=== PATIENT | female | born 1995 | race African-American/Black ===

== ENCOUNTER → 2016-12-11 | Outpatient (CLI) | payer BC ==
[~2016-12-11] MED LIST: BIOT1TAB7 PO; GING550C PO; METH1CAP PO; NORE1TAB3 PO; TURM1CAP4 PO; VNTHFA/IN INH
[2016-12-11 13:15] LABS: MEAN CELL VOLUME 93.4 fL (80-100); MEAN CORPUSCULAR HEMOGLOBIN 31.2 pg (25-34); MEAN CORPUSCULAR HGB CONC 33.4 g/dl (32-36); MEAN PLATELET VOLUME 10.1 fL (7.4-10.4); PLATELET COUNT 401 K/uL (130-400); RED BLOOD COUNT 4.39 M/uL (4.2-5.4); WHITE BLOOD COUNT 4.02 K/uL (4.8-10.8)
[2016-12-11 13:28] LABS: PARTIAL THROMBOPLASTIN RATIO 1.1; PROTHROMBIN TIME (PATIENT) 11.1 SECONDS (9.0-12.0)
[2016-12-11 13:46] LABS: BASO ABS # 0.04 K/uL (0-0.2); COMPLETE YES; IG% 0.2 %; LYMPH % 50.2 %; LYMPH ABS # 2.02 K/uL (1.2-3.4); MONO % 8.7 %; NEUT % 36.9 %
[2016-12-11 14:09] LABS: BLOOD UREA NITROGEN 11 mg/dl (7-18); CALCIUM 9.2 mg/dl (8.5-10.1); CARBON DIOXIDE 27 mmol/L (21-32); CHLORIDE 103 mmol/L (98-107); CREATININE 0.81 mg/dl (0.60-1.20); GLUCOSE 78 mg/dl (70-99); POTASSIUM 3.8 mmol/L (3.5-5.1); SODIUM 137 mmol/L (136-145)
== END | disposition home or self-care (01) ==
LOC: C.LAB 12:04
PROVIDERS: ATTEND Plastic Surgery
DX: L73.2 Hidradenitis suppurativa (principal)

== ENCOUNTER → 2016-12-18 | Day surgery (SDC) | payer BC ==
[2016-12-12 14:33] VITALS: Ht 157.5 cm; Wt 54.5 kg
[~2016-12-18] VITALS: Ht 157.5 cm; Wt 54.5 kg
[~2016-12-18] MED LIST changes: +ACETAMINOPHEN 325 MG TAB PO PRN; +ATROPINE SULFATE 0.1 MG/ML 5ML SYR IV PRN; +CEFAZOLIN 1000MG/55 ML D5W IV SCH; +DEXAMETHASONE SOD INJ 4 MG/ML VIAL IV PRN; +DEXAMETHASONE SOD INJ 4 MG/ML VIAL ONE; +EpHEDrine SULFATE INJ 50 MG/ML AMP IV PRN; +FENTANYL CITRATE INJ 50 MCG/1 ML 2 ML VIAL IV PRN; +FENTANYL CITRATE INJ 50 MCG/1 ML 2 ML VIAL ONE; +KETOROLAC TROMETHAMINE 30 MG/ML VIAL IV. PRN; +LABETALOL HCL IV 5 MG/ML 20ML IV PRN; +LIDOCAINE HCL 2% 2 ML VIAL (20MG/ML) ONE; +LIDOCAINE/EPINEPHRINE 1% INJ 50 ML VIAL ONE; +METOCLOPRAMIDE HCL INJ 5 MG/ML 2 ML VIAL IV PRN; +MIDAZOLAM HCL 1 MG/ML 2ML VIAL ONE; +MoRPHine SULFATE 10 MG/ML CARP/VIAL IV PRN; +MoRPHine SULFATE 2 MG/ML CARP IV PRN; +MoRPHine SULFATE 4 MG/ML 1 ML CARP\\VIAL IV PRN; +ONDANSETRON INJ 2 MG/ML 2 ML VIAL IV PRN; +ONDANSETRON INJ 2 MG/ML 2 ML VIAL ONE; +OXYCODONE/ACETAMINOPHEN 5-325 TAB PO PRN; +PHENYLEPHRINE 100MCG/ML 5ML SYR IV PRN; +PROPOFOL IV EMULSION 10 MG/ML 20 ML VIAL IV ONE; +SODIUM CHLORIDE 0.9% 1000ML 1,000 ML IV SCH
--- NOTE | 2016-12-18 07:00 | History & Physical Bridge - [place] ---
H&P Re-Evaluation Bridge Note: I have examined the patient, reviewed the History & Physical and in the interval since the performance of the History & Physical I have noted the following changes of clinical significance: No changes noted
[2016-12-18] MEDS: LACTATED RINGER'S 1000ML 1,000 ML IV SCH ×2 (07:05→09:38)
--- NOTE | 2016-12-18 08:58 | [facility] Post Operative Brief Note ---
Immediate Operative Summary Operative Date Dec 18, 2016. Pre-Operative Diagnosis Bilateral Hidradenitis Suppurativa Post-Operative Diagnosis same Procedure(s) Performed Bilateral Axilla Hidradenitis Excision, Primary Closure Surgeon Dr Anna Marie Romero P[employer] K[employer] Surgeon(s) Janki Bernal, MS4 Estimated Blood Loss 5 Findings hidradentitis with cysts and tunneling Specimens A) Right Axilla Hidradenitis B) Left Axilla Hidradenitis Anesthesia general Complication(s) None Disposition Recovery Room / PACU
--- NOTE | 2016-12-18 09:03 | Discharge Instructions-SurgCtr ---
Discharge Instructions Date of Service Dec 18, 2016. Visit Reason for Visit: Bilateral Axillary Hidradenitis Suppurativa Discharge Discharge Diagnosis / Problem: hidradenitis suppurativa Discharge Goals Goal(s): Decrease discomfort, Improve function Medications Stopped Medications Name(s): all meds Restart Stopped Medication(s): ok to resume home meds, including doxycycline Activity Recommendations Activity Limitations: per Instructions/Follow-up section Anesthesia . Post Anesthesia Instructions: If you have had General Anesthesia or IV Sedation: * Do not drive today. * Resume driving when surgeon permits. * Do not make important decisions or sign legal documents today. * Call surgeon for: 1. Temperature elevations greater than 101 degrees F. 2. Uncontrollable pain. 3. Excessive bleeding. 4. Persistent nausea and vomiting. 5. Medication intolerance (nausea, vomiting or rash). * For nausea and vomiting use only clear liquids such as: tea, soda, bouillon until nausea subsides, then gradually increase diet as tolerated. * If you have any concerns or questions, call your surgeon's office. If physician is unavailable and it is an emergency, call 911 or go to the nearest emergency room. . Instructions / Follow-Up Instructions / Follow-Up ACTIVITY RECOMMENDATIONS: __Normal activities _x_No bending, lifting or straining __No driving _x_Driving allowed when you are off pain medications _x_Walking permitted __You should have help at home for ___ days DRESSINGS: __No dressings required _x_Keep dressings dry/in place until first office visit __Remove dressings ___ and leave dressings off __Apply ice ___ days __Remove dressings and reapply garment __Apply antibiotic ointment (Bacitracin, Neosporin, etc) to wounds 3-4 times/ day for 10 days BATHING: __Keep dressings dry x__Sponge bathing permitted __Showering permitted __No swimming, hot tubs or soaking in a tub MEDICATIONS: Resume previous medications unless instructed otherwise by your surgeon. x__Do not use aspirin, Motrin, Advil or Ibuprofen as these may promote bleeding. Please use Tylenol. _x_Prescription(s) provided: in office OTHER INSTRUCTIONS: __Record drain output 2-3 times per day SPECIAL CARE INSTRUCTIONS: * It is normal to have a mild fever after surgery. If your temperature is higher than 101.5 degrees F, please call the office at [phone]. * Constipation is a typical side effect of pain medication. An over-the- counter stool softener will help relieve this. * Leaking around surgical drains may occur and should not cause concern. Sometimes these drains become clogged. If this happens, remove the bulb and milk the clot out of the tube, then replace the bulb. * Drainage from wounds after liposuction is normal and should be expected. Garments will become soiled. You should protect furniture and bedding. This drainage should mostly subside within 2-3 days. Leave garments in place unless instructed to remove them. * If you have unusual drainage from a wound or are concerned you have an infection or have any questions or concerns, please call the office at [phone]. FOLLOW UP VISIT: If not already scheduled, please call the office, , when you return home after surgery to schedule an appointment to be seen in ___ days. Diet Recommendations Home Diet: resume previous diet Procedures Procedures Performed: Bilateral Axilla Hidradenitis Excision, Primary Closure Pending Studies Studies pending at discharge: no Medical Emergencies . Who to Call and When: Medical Emergencies: If at any time you feel your situation is an emergency, please call 911 immediately. . Non-Emergent Contact Non-Emergency issues call your: Primary Care Provider, Surgeon . . "Provider Documentation" section prepared by Anna Marie Romero. . [place] Drug Monitoring Program Search Results: patient reviewed within database, no issues identified (PDMP checked, documented in office chart)
[2016-12-18 10:00] VITALS: TEMP 36.6
--- NOTE | 2016-12-18 10:19 | Anesthesia Progress Nt - [facility] ---
Anesthesia Post Op Note Date & Time Dec 18, 2016 at 10:18 Vital Signs Pain Intensity: 0 Vital Signs Past 12 Hours Date Time Temp Pulse Resp B/P (MAP) Pulse Ox O2 Delivery O2 Flow Rate FiO2 12/18/16 10:00 36.6 84 16 148/93 (111) 97 Room Air 12/18/16 09:46 127/84 12/18/16 09:44 83 17 12/18/16 09:44 80 17 100 12/18/16 09:41 132/88 12/18/16 09:41 36.6 80 12 127/84 100 Room Air 12/18/16 09:39 90 18 100 12/18/16 09:39 88 18 12/18/16 09:36 125/76 12/18/16 09:34 78 15 100 12/18/16 09:34 78 15 12/18/16 09:31 124/81 12/18/16 09:29 75 12 12/18/16 09:29 75 12 100 12/18/16 09:26 112/74 12/18/16 09:24 80 17 100 12/18/16 09:24 81 17 12/18/16 09:21 130/85 12/18/16 09:19 97 17 100 12/18/16 09:19 93 17 12/18/16 09:16 132/70 12/18/16 09:14 88 15 100 12/18/16 09:14 85 15 12/18/16 09:11 133/78 12/18/16 09:09 36.5 106 20 128/56 100 Mask 6 12/18/16 09:09 106 12/18/16 09:09 106 128/56 100 12/18/16 06:33 37 84 16 124/88 (100) 99 Room Air Notes Mental Status: alert / awake / arousable, participated in evaluation Pt Amnestic to Procedure: Yes Nausea / Vomiting: adequately controlled Pain: adequately controlled Airway Patency, RR, SpO2: stable & adequate BP & HR: stable & adequate Hydration State: stable & adequate Anesthetic Complications: no major complications apparent
[2016-12-18 10:27] VITALS: BP 130/87; PULSE 94; O2SAT 100
--- NOTE | 2016-12-18 16:59 | OPERATIVE REPORT ---
DATE OF OPERATION: 12/18/2016 PREOPERATIVE DIAGNOSIS: Bilateral axillary hidradenitis refractory to medical management. POSTOPERATIVE DIAGNOSIS: Same. PROCEDURE: Surgical excision of hidradenitis suppurativa bilateral axillae with primary closure. SURGEON: Dr. Anna Marie Romero. SENIOR TELECOMMUNICATIONS SPECIALIST: Janki Bernal MS4 ANESTHESIA: General. COMPLICATIONS: None. INDICATION FOR THE PROCEDURE: The patient is a 21-year-old female with a 10-year history of hidradenitis suppurativa, located in both axillae. She underwent multiple incision and drainages. We initially tried to manage her conservatively with antibacterial washes and doxycycline. However, she developed continued abscesses following this. We left her on prophylactic doxycycline in anticipation of this procedure. We discussed options for closure, which included primary closure, Z-plasty or flap, or full thickness skin grafting. BRIEF DESCRIPTION OF THE PROCEDURE: The risks, benefits and alternatives of the procedure were explained to the patient who agreed and signed consent. She was identified and marked in the preoperative holding area. She was brought to the operating room where she was positioned supine with her arm was extended. Surgical site was prepped and draped sterilely. The ChloraPrep was used. After drapes were placed, markings were reassessed and 1% lidocaine with epinephrine was used to anesthetize the incisions. I began with the right side. The area of hidradenitis on the right measured about 5 x 4 cm and I attempted to take at least a centimeter of healthy tissue around this. A 15 blade scalpel was used to make the incision through the underlying skin and into subcutaneous fat. Extensive scarring was noted. Cystic structures as well as multiple dilated pores were noted. I did not notice any discrete tracts on the right side. I contemplated whether to attempt primary closure and her arm was mobilized cephalad to see whether a relatively tension free closure could be obtained. Once I determined it could, the wound edges were undermined. Additional hair follicles along the edge of the wound were destroyed using electrocautery. Wound was reapproximated using 2-0 Vicryl deep dermal suture. The incision was tacked down into the axilla along the fascia using 2-0 Vicryl. This was to prevent scar migration and seroma formation. A 3-0 PDS interrupted dermal sutures were then placed followed by a 3-0 Monocryl running subcuticular suture. Total wound closure length on the right was 9 cm. Attention was then turned to the left side. While the area of hidradenitis measured only 3.2 cm on this side, once I began the procedure, there was noted to be a cyst as well as tunneling and so this was excised as well. Maximal excision was about 5 cm on the left. The wound was reapproximated in similar fashion as the right. Total wound closure length was about 9 cm. The wound edges were nicely everted following closure. Due to excess perseveration in the area, in general, I dressed the wounds with Aquacel AG in an effort to wick away moisture and provide antibacterial benefit. Dry dressings and tape were placed then. The patient was awakened and transferred to recovery in satisfactory condition. I attest to the content of the Intraoperative Record and any orders documented therein. Any exceptions are noted below. NINA
== END | disposition home or self-care (01) ==
LOC: X.SURG 06:08
PROVIDERS: ATTEND Plastic Surgery
DX: L73.2 Hidradenitis suppurativa (principal); L72.0 Epidermal cyst; J45.909 Unspecified asthma, uncomplicated; F41.8 Other specified anxiety disorders; Z79.899 Other long term (current) drug therapy